=== PATIENT | male | born 1945 | race Two or more races ===

== ENCOUNTER 2017-11-01 09:16 | Outpatient (CLI) | payer OTHER | END 2017-11-01 09:21 | disposition home or self-care (01) | LOC: SONOGRAMA 09:16 | DX: N40.1 Benign prostatic hyperplasia with lower urinary tract symptoms (principal); R31.9 Hematuria, unspecified ==

== ENCOUNTER 2017-12-02 09:34 | Outpatient (CLI) | payer OTHER | END 2017-12-02 09:42 | disposition home or self-care (01) | LOC: RAD 501 09:34 | DX: M19.012 Primary osteoarthritis, left shoulder (principal); M19.011 Primary osteoarthritis, right shoulder; M47.897 Other spondylosis, lumbosacral region ==

== ENCOUNTER 2018-08-08 12:15 | Outpatient (CLI) | payer OTHER | END 2018-08-08 12:34 | disposition home or self-care (01) | LOC: RAD 12:15 | DX: M51.16 Intervertebral disc disorders with radiculopathy, lumbar region (principal); M50.10 Cervical disc disorder with radiculopathy, unspecified cervical region; M17.0 Bilateral primary osteoarthritis of knee; M75.51 Bursitis of right shoulder; M75.52 Bursitis of left shoulder ==

== ENCOUNTER 2019-01-17 08:16 | Outpatient (CLI) | payer OTHER | END 2019-01-17 08:59 | disposition home or self-care (01) | LOC: SONOGRAMA 08:16 → MAMO-SONO 08:45 → SONOGRAMA 08:59 | DX: N40.1 Benign prostatic hyperplasia with lower urinary tract symptoms (principal); R31.9 Hematuria, unspecified ==

== ENCOUNTER 2019-01-17 09:24 | Outpatient (CLI) | payer OTHER | END 2019-01-17 09:30 | disposition home or self-care (01) | LOC: LAB 09:24 | DX: R97.20 Elevated prostate specific antigen [PSA] (principal); N30.00 Acute cystitis without hematuria ==

== ENCOUNTER → 2019-04-01 | Outpatient (CLI) | payer OTHER | END | disposition home or self-care (01) | LOC: RAD 09:43 | DX: M51.06 Intervertebral disc disorders with myelopathy, lumbar region (principal); M51.16 Intervertebral disc disorders with radiculopathy, lumbar region ==

== ENCOUNTER 2019-08-03 11:14 | Outpatient (CLI) | payer OTHER | END 2019-08-03 15:09 | disposition home or self-care (01) | LOC: RAD 11:14 | DX: M17.0 Bilateral primary osteoarthritis of knee (principal) ==

== ENCOUNTER 2019-08-19 10:03 | Outpatient (CLI) | payer OTHER | END 2019-08-19 11:00 | disposition home or self-care (01) | LOC: SONOGRAMA 10:03 | DX: N50.89 Other specified disorders of the male genital organs (principal) ==

== ENCOUNTER 2020-02-29 13:24 | Outpatient (CLI) | payer OTHER | END 2020-02-29 13:26 | disposition home or self-care (01) | LOC: SONOGRAMA 13:24 | PROVIDERS: ATTEND Internal Medicine Endocrinology, Diabetes & Metabolism | DX: E04.2 Nontoxic multinodular goiter (principal) ==

== ENCOUNTER 2020-02-29 14:32 | Outpatient (CLI) | payer OTHER | END 2020-02-29 15:12 | disposition home or self-care (01) | LOC: NUCLEAR 14:32 | PROVIDERS: ATTEND Internal Medicine Endocrinology, Diabetes & Metabolism | DX: M85.89 Other specified disorders of bone density and structure, multiple sites (principal); Z13.820 Encounter for screening for osteoporosis ==

== ENCOUNTER → 2020-06-24 | Emergency (ER) | payer OTHER ==
[~2020-06-24] VITALS: Ht 165.1 cm; Wt 74.8 kg
[~2020-06-24] MED LIST: SIMVASTATIN 20 MG; SYNTHROID88 MCG; [UNRECOGNIZED DRUG - OTHER]
== END | disposition home or self-care (01) ==
LOC: ER 10:17
DX: Z48.02 Encounter for removal of sutures (principal)

== ENCOUNTER 2020-07-18 09:34 | Outpatient (CLI) | payer OTHER | END 2020-07-18 16:25 | disposition home or self-care (01) | LOC: SONOGRAMA 09:34 | PROVIDERS: ATTEND Urology | DX: Q61.02 Congenital multiple renal cysts (principal); R31.1 Benign essential microscopic hematuria; N40.1 Benign prostatic hyperplasia with lower urinary tract symptoms ==

== ENCOUNTER 2020-09-13 11:19 | Outpatient (CLI) | payer OTHER | END 2020-09-14 15:07 | disposition home or self-care (01) | LOC: TOM 11:19 | PROVIDERS: ATTEND Internal Medicine | DX: M47.892 Other spondylosis, cervical region (principal); M54.5 Low back pain; I10 Essential (primary) hypertension; E03.8 Other specified hypothyroidism; E78.89 Other lipoprotein metabolism disorders; E11.51 Type 2 diabetes mellitus with diabetic peripheral angiopathy without gangrene; J11.1 Influenza due to unidentified influenza virus with other respiratory manifestations; M48.8X2 Other specified spondylopathies, cervical region; M54.2 Cervicalgia; G31.89 Other specified degenerative diseases of nervous system ==

== ENCOUNTER 2020-11-25 10:42 | Outpatient (CLI) | payer OTHER | END 2020-11-25 10:51 | disposition home or self-care (01) | LOC: RAD 10:42 | PROVIDERS: ATTEND Orthopaedic Surgery Orthopaedic Surgery of the Spine | DX: M50.00 Cervical disc disorder with myelopathy, unspecified cervical region (principal); Z98.1 Arthrodesis status ==

== ENCOUNTER 2021-06-30 10:13 | Outpatient (CLI) | payer OTHER | END 2021-06-30 10:20 | disposition home or self-care (01) | LOC: RAD 10:13 | PROVIDERS: ATTEND Physical Medicine & Rehabilitation | DX: M25.511 Pain in right shoulder (principal) ==

== ENCOUNTER 2021-07-18 07:25 | Outpatient (CLI) | payer OTHER | END 2021-07-18 07:28 | disposition home or self-care (01) | LOC: SONOGRAMA 07:25 | PROVIDERS: ATTEND Urology | DX: N40.1 Benign prostatic hyperplasia with lower urinary tract symptoms (principal); R31.1 Benign essential microscopic hematuria ==

== ENCOUNTER 2022-05-09 09:09 | Outpatient (CLI) | payer OTHER | END 2022-05-09 09:13 | disposition home or self-care (01) | LOC: NUCLEAR 09:09 | PROVIDERS: ATTEND Internal Medicine Endocrinology, Diabetes & Metabolism | DX: M85.89 Other specified disorders of bone density and structure, multiple sites (principal); Z13.820 Encounter for screening for osteoporosis ==

== ENCOUNTER 2022-07-20 09:19 | Outpatient (CLI) | payer OTHER | END 2022-07-20 09:21 | disposition home or self-care (01) | LOC: LAB 09:19 | PROVIDERS: ATTEND Urology | DX: R97.20 Elevated prostate specific antigen [PSA] (principal); N30.00 Acute cystitis without hematuria; N40.1 Benign prostatic hyperplasia with lower urinary tract symptoms ==

== ENCOUNTER 2022-07-20 10:12 | Outpatient (CLI) | payer OTHER | END 2022-07-20 10:28 | disposition home or self-care (01) | LOC: SONOGRAMA 10:12 | PROVIDERS: ATTEND Urology | DX: N20.0 Calculus of kidney (principal); R31.1 Benign essential microscopic hematuria; N40.1 Benign prostatic hyperplasia with lower urinary tract symptoms ==

== ENCOUNTER → 2022-10-01 | Outpatient (CLI) | payer OTHER | END | disposition home or self-care (01) | LOC: RAD 14:29 | PROVIDERS: ATTEND Internal Medicine | DX: J06.9 Acute upper respiratory infection, unspecified (principal); I10 Essential (primary) hypertension; M54.2 Cervicalgia; M48.8X2 Other specified spondylopathies, cervical region; M54.50 Low back pain, unspecified; E03.9 Hypothyroidism, unspecified ==

== ENCOUNTER 2023-02-14 10:38 | Outpatient (CLI) | payer OTHER | END 2023-02-14 10:42 | disposition home or self-care (01) | LOC: RAD 10:38 | PROVIDERS: ATTEND Ophthalmology | DX: H25.011 Cortical age-related cataract, right eye (principal); Z98.41 Cataract extraction status, right eye ==

== ENCOUNTER 2023-05-24 10:27 | Outpatient (CLI) | payer OTHER | END 2023-05-24 10:42 | disposition home or self-care (01) | LOC: RAD 10:27 | DX: M46.1 Sacroiliitis, not elsewhere classified (principal); M51.16 Intervertebral disc disorders with radiculopathy, lumbar region; M51.26 Other intervertebral disc displacement, lumbar region; M17.0 Bilateral primary osteoarthritis of knee ==

== ENCOUNTER 2023-07-19 10:39 | Outpatient (CLI) | payer OTHER | END 2023-07-19 10:57 | disposition home or self-care (01) | LOC: SONOGRAMA 10:39 | PROVIDERS: ATTEND Urology | DX: N40.1 Benign prostatic hyperplasia with lower urinary tract symptoms (principal); R31.1 Benign essential microscopic hematuria; R33.9 Retention of urine, unspecified ==

== ENCOUNTER → 2024-06-23 09:52 | Outpatient (CLI) | payer OTHER ==
[2024-06-23 10:42] LABS: HEMATOCRIT 38.5 % (39.0-48.0); HEMOGLOBIN 13.4 g/dL (13-16.00); MEAN CELL VOLUME 87.1 fL (80.0-100.00); MEAN CORPUSCULAR HEMOGLOBIN 30.4 pg (27.00-32.0); MEAN CORPUSCULAR HGB CONC 34.9 g/dl (32.0-36.0); PLATELET COUNT 198 K/uL (150-450); RED BLOOD COUNT 4.41 M/uL (4.00-6.00); RED CELL DISTRIBUTION WIDTH 14.1 % (11.5-14.5)
[2024-06-23 11:31] LABS: FOLIC ACID > 20.00 ng/ml (4.78-20)
[2024-06-23 11:34] LABS: % SATURACION 28.7 % (20-50); ALBUMIN 3.7 gm/dL (3.4-5.0); BILIRUBIN TOTAL 0.94 mg/dL (0.3-1.2); CALCIUM 9.3 mg/dL (8.5-10.1); CREATININE SERUM 1.06 mg/dL (0.70-1.30); GFR 67.74; GLOBULINA 3.4 G/DL (2.4-3.5); POTASSIUM 4.37 mEq/L (3.5-5.1); PROSTATIC SPECIFIC ANTIGEN 2.17 NG/ML (0.010-4.00); T4 FREE 1.01 NG/ML (0.76-1.46); TOTAL PROTEIN 7.1 gm/dL (6.4-8.2); TSH 2.41 uIU/mL (0.358-3.74)
[2024-06-24 08:42] LABS: MANUAL PLATELET COUNT 316
[2024-06-24 08:53] LABS: PLATELET ESTIMATE NORMAL (NORMAL)
[2024-06-24 11:42] LABS: ANTI THYROID PEROXIDASE 146 IU/mL (0-34); hav igm Negative (Negative); hcv Non Reactive (Non Reactive); hep b c Negative (Negative); hep b s ag Negative (Negative)
[2024-06-24 13:06] LABS: TRANSFERIN 244 mg/dL (177-329)
[2024-06-24 15:10] LABS: hgb a 97.7 % (96.4-98.8); hgb a2 2.3 % (1.8-3.2); hgb f 0 % (0.0-2.0); hgb s 0 % (0.0)
== END | disposition home or self-care (01) ==
LOC: LAB 09:52
PROVIDERS: ATTEND Internal Medicine Hematology & Oncology
DX: I10 Essential (primary) hypertension (principal); D72.818 Other decreased white blood cell count; E78.2 Mixed hyperlipidemia; E44.1 Mild protein-calorie malnutrition; D50.8 Other iron deficiency anemias; R79.9 Abnormal finding of blood chemistry, unspecified; R74.02 Elevation of levels of lactic acid dehydrogenase [LDH]; K76.89 Other specified diseases of liver; D55.0 Anemia due to glucose-6-phosphate dehydrogenase [G6PD] deficiency; D51.1 Vitamin B12 deficiency anemia due to selective vitamin B12 malabsorption with proteinuria; E03.8 Other specified hypothyroidism; E06.3 Autoimmune thyroiditis; R97.0 Elevated carcinoembryonic antigen [CEA]

== ENCOUNTER 2024-07-03 12:38 | Outpatient (CLI) | payer OTHER | END 2024-07-03 12:42 | disposition home or self-care (01) | LOC: NUCLEAR 12:38 | PROVIDERS: ATTEND Internal Medicine Endocrinology, Diabetes & Metabolism | DX: M85.89 Other specified disorders of bone density and structure, multiple sites (principal); Z13.820 Encounter for screening for osteoporosis; M81.0 Age-related osteoporosis without current pathological fracture ==

== ENCOUNTER 2024-07-06 08:23 | Outpatient (CLI) | payer OTHER | END 2024-07-06 08:26 | disposition home or self-care (01) | LOC: SONOGRAMA 08:23 | PROVIDERS: ATTEND Internal Medicine Endocrinology, Diabetes & Metabolism | DX: E04.2 Nontoxic multinodular goiter (principal); R59.0 Localized enlarged lymph nodes ==

== ENCOUNTER 2024-07-14 07:44 | Outpatient (CLI) | payer OTHER | END 2024-07-14 07:50 | disposition home or self-care (01) | LOC: RAD 07:44 | DX: M51.16 Intervertebral disc disorders with radiculopathy, lumbar region (principal); M51.26 Other intervertebral disc displacement, lumbar region ==

== ENCOUNTER 2024-07-24 08:21 | Outpatient (CLI) | payer OTHER | END 2024-07-24 08:25 | disposition home or self-care (01) | LOC: SONOGRAMA 08:21 | PROVIDERS: ATTEND Urology | DX: N40.1 Benign prostatic hyperplasia with lower urinary tract symptoms (principal); N40.0 Benign prostatic hyperplasia without lower urinary tract symptoms ==

== ENCOUNTER 2024-09-22 09:08 | Outpatient (CLI) | payer OTHER ==
[2024-09-22 10:52] LABS: HEMATOCRIT 38.3 % (39.0-48.0); HEMOGLOBIN 13.3 g/dL (13-16.00); MEAN CELL VOLUME 89.2 fL (80.0-100.00); MEAN CORPUSCULAR HGB CONC 34.7 g/dl (32.0-36.0); PLATELET COUNT 229 K/uL (150-450); RED BLOOD COUNT 4.29 M/uL (4.00-6.00); RED CELL DISTRIBUTION WIDTH 14.4 % (11.5-14.5)
[2024-09-22 11:41] LABS: ALBUMIN 3.4 gm/dL (3.4-5.0); BILIRUBIN TOTAL 0.71 mg/dL (0.3-1.2); CALCIUM 8.9 mg/dL (8.5-10.1); CREATININE SERUM 1.02 mg/dL (0.70-1.30); GFR 70.63; GLOBULINA 3.3 G/DL (2.4-3.5); POTASSIUM 4.79 mEq/L (3.5-5.1); TOTAL PROTEIN 6.7 gm/dL (6.4-8.2)
[2024-09-22 12:19] LABS: FOLIC ACID > 20.00 ng/ml (4.78-20)
[2024-09-23 08:32] LABS: MANUAL PLATELET COUNT 316
[2024-09-23 08:33] LABS: PLATELET ESTIMATE NORMAL (NORMAL)
== END 2024-09-22 09:09 | disposition home or self-care (01) ==
LOC: LAB 09:08
PROVIDERS: ATTEND Internal Medicine Hematology & Oncology
DX: D50.8 Other iron deficiency anemias (principal); R79.9 Abnormal finding of blood chemistry, unspecified; I10 Essential (primary) hypertension; R74.02 Elevation of levels of lactic acid dehydrogenase [LDH]; K76.89 Other specified diseases of liver; D72.818 Other decreased white blood cell count; E78.2 Mixed hyperlipidemia; D53.9 Nutritional anemia, unspecified; E44.1 Mild protein-calorie malnutrition

== ENCOUNTER 2025-04-14 09:57 | Outpatient (CLI) | payer OTHER ==
[2025-04-14 11:23] LABS: BASO % 1.5 % (0.1-1.2); EOS # 0.25 (0.04-0.54); EOS % 6.3 % (0.7-7.0); LYMPH # 1.16 (1.18-3.74); LYMPH % 29.4 % (19.3-53.1); MEAN PLATELET VOLUME 9.90 fl (9.4-12.4); MONO # 0.48 (0.24-0.82); NEUT # 2.00 (1.56-6.13); NEUT % 50.6 % (34.0-71.1); RED CELL DISTRIBUTION WIDTH 13.3 % (11.6-14.4)
[2025-04-14 11:25] LABS: MONO % 12.2 % (4.7-12.5)
[2025-04-14 12:07] LABS: ALT/SGPT 35.0 U/L (12-78); AST/SGOT 27.0 U/L (15-37); BILIRUBIN TOTAL 0.76 mg/dL (0.3-1.2); BUN CREA RATIO 22.0 (7.0-25.0); CREATININE SERUM 1.03 mg/dL (0.70-1.30); FE 85.0 ug/dl (65-175); GFR 69.84; GLOBULINA 3.2 G/DL (2.4-3.5); GLUCOSE FASTING 88.0 mg/dL (65-100); OSMOLALITY SERUM 290.0 MOSM/KG (275-295)
[2025-04-14 13:03] LABS: FOLIC ACID > 20.00 ng/ml (4.78-20)
[2025-04-15 07:11] LABS: COMPLEMENT C3 108 mg/dL (82-167); COMPLEMENT C4 17 mg/dL (12-38)
[2025-04-15 11:12] LABS: ANTI JO 1 < 0.2 AI (0.0-0.9); DNA AB DOUBLE STRABDED < 1 IU/mL (0-9)
[2025-04-15 15:08] LABS: CYCLIC CITRULLINE PEPTIDE 12 units (0-19)
[2025-04-15 17:12] LABS: ANTI SCLERODERMA 70 < 0.2 AI (0.0-0.9)
[2025-04-16 09:11] LABS: MANUAL PLATELET COUNT 186
== END 2025-04-14 10:05 | disposition home or self-care (01) ==
LOC: LAB 09:57
PROVIDERS: ATTEND Internal Medicine Hematology & Oncology
DX: D72.818 Other decreased white blood cell count (principal); E06.3 Autoimmune thyroiditis; D51.3 Other dietary vitamin B12 deficiency anemia; I10 Essential (primary) hypertension; E78.2 Mixed hyperlipidemia; D53.9 Nutritional anemia, unspecified; E44.1 Mild protein-calorie malnutrition; D50.8 Other iron deficiency anemias; R79.9 Abnormal finding of blood chemistry, unspecified; R74.02 Elevation of levels of lactic acid dehydrogenase [LDH]; K76.89 Other specified diseases of liver; M06.9 Rheumatoid arthritis, unspecified; M32.9 Systemic lupus erythematosus, unspecified; R97.0 Elevated carcinoembryonic antigen [CEA]; M34.81 Systemic sclerosis with lung involvement; M05.9 Rheumatoid arthritis with rheumatoid factor, unspecified

== ENCOUNTER 2025-07-15 08:59 | Outpatient (CLI) | payer OTHER ==
[2025-07-15 09:54] LABS: URINE APPEARANCE Clear; URINE BACTERIA 7.1 uL (0.0-1933); URINE BILIRRUBIN Negative (NEGATIVE); URINE COLOR Yellow; URINE EPITHELIAL CELLS 1.6 uL (0.0-38.8); URINE GLUCOSE Negative (NEGATIVE); URINE KETONE Negative (NEGATIVE); URINE LEUKOCYTE Negative; URINE NITRATE Negative; URINE PROTEIN Negative (NEGATIVE); URINE RBC 9.5 uL (0.0-20.8); URINE UROBILINOGEN 0.2 E.U./dl; URINE WBC 4.9 uL (0.0-23.2)
[2025-07-15 10:03] LABS: URINE BLOOD TRACES; URINE CAST 0.14 uL (0.0-1.40)
== END 2025-07-15 09:00 | disposition home or self-care (01) ==
LOC: LAB 08:59
PROVIDERS: ATTEND Urology
DX: N40.0 Benign prostatic hyperplasia without lower urinary tract symptoms (principal); R97.20 Elevated prostate specific antigen [PSA]; R31.1 Benign essential microscopic hematuria

== ENCOUNTER 2025-07-20 09:17 | Outpatient (CLI) | payer OTHER | END 2025-07-20 09:31 | disposition home or self-care (01) | LOC: SONOGRAMA 09:17 | PROVIDERS: ATTEND Urology | DX: N40.0 Benign prostatic hyperplasia without lower urinary tract symptoms (principal); R31.1 Benign essential microscopic hematuria; R33.9 Retention of urine, unspecified ==